=== PATIENT | female | born 1960 | race Caucasian/White ===

== ENCOUNTER → 2016-12-30 | Outpatient (CLI) | payer OTHER ==
--- NOTE | 2017-01-02 09:53 | MM ---
Reason for exam: screening (asymptomatic). History: Patient is postmenopausal. Physical Findings: A clinical breast exam by your physician is recommended on an annual basis and results should be correlated with mammographic findings. MG Screening Mammo w CAD Bilateral CC and MLO view(s) were taken. No prior studies available for comparison. The breast tissue is heterogeneously dense. This may lower the sensitivity of mammography. No significant changes when compared with prior studies. ASSESSMENT: Benign, BI-RAD 2 RECOMMENDATION: Routine screening mammogram of both breasts in 1 year.
== END | disposition home or self-care (01) ==
LOC: RADMAMWWP 13:00
PROVIDERS: ATTEND Internal Medicine
DX: Z12.31 Encounter for screening mammogram for malignant neoplasm of breast (principal)

== ENCOUNTER 2017-06-09 08:24 | Day surgery (SDC) | payer OTHER ==
[2017-06-08 09:45] VITALS: BMI 24.7
[~2017-06-09 08:24] MED LIST: LACTATED RINGERS 1,000 ML IV SCH
[2017-06-09 08:40] VITALS: RESP 16; TEMP 98
[2017-06-09] MEDS ORDERED: LIDOCAINE 1% 20 ML VIAL (10MG/ML) FOR IV START INTRADERMA ONE (08:51)
[2017-06-09 08:58] LABS: Glucose,Whole Blood 149 mg/dL (75-99)
--- NOTE | 2017-06-09 10:00 | P.PCN ---
Date of Procedure: 06/09/17 Procedure(s) Performed: BRIEF HISTORY: Patient is a 56-year-old pleasant white female scheduled for an elective colonoscopy as a part of evaluation of Hemoccult-positive stool. PROCEDURE PERFORMED: Colonoscopy with snare polypectomy. PREOPERATIVE DIAGNOSIS: Hemoccult-positive stool. IV sedation per Anesthesia. PROCEDURE: After informed consent was obtained, the patient, was brought into the endoscopy unit. IV sedation was administered by Anesthesia under continuous monitoring. Digital rectal examination was normal. Initially the Olympus CF- 160 flexible video colonoscope was then inserted in the rectum, gradually advanced into the cecum without any difficulty. Careful examination was performed as the scope was gradually being withdrawn. Ileocecal valve and the appendiceal orifice were visualized and appeared normal. Prep was excellent. Mucosa of the cecum, ascending colon, transverse colon, descending colon, sigmoid colon, and rectum appeared normal. In the proximal rectum there were 2 polyps measuring 5 mm and 1 cm in size both of which were removed by snare polypectomy. Retroflexion was performed in the rectum and no lesions were seen. The patient tolerated the procedure well. IMPRESSION: 1 cm and 5 mm proximal rectal polyp status post polypectomy Rest of the colon appeared normal RECOMMENDATIONS: Findings of this examination were discussed with the patient as well as her family. She was advised to follow with the biopsy results. If the biopsy shows a tubular adenoma she can have a repeat coloscopy in 5 years.
[2017-06-09 10:18] VITALS: BP 123/76; PULSE 82
== END 2017-06-09 10:36 | disposition home or self-care (01) ==
LOC: ORWHC2ENDO 08:24
PROVIDERS: ATTEND Internal Medicine Gastroenterology
DX: K62.1 Rectal polyp (principal); I10 Essential (primary) hypertension; F39 Unspecified mood [affective] disorder; Z88.5 Allergy status to narcotic agent; Z88.0 Allergy status to penicillin; Z79.899 Other long term (current) drug therapy; Z79.891 Long term (current) use of opiate analgesic; Z72.0 Tobacco use
CPT/HCPCS: 45385; 88305

== ENCOUNTER → 2020-06-29 | Outpatient (CLI) | payer OTHER ==
--- NOTE | 2020-06-29 23:31 | MR ---
EXAMINATION TYPE: MR lumbar spine wo/w con DATE OF EXAM: 06/29/2020 COMPARISON: 02/02/2012 HISTORY: LBP, radiates into left buttock. Hx laminectomy CONTRAST: Standard multiplanar, multisequence MRI departmental protocol utilizing 6.5 mL intravenous Gadavist g adolinium contrast. Lumbar vertebra have normal alignment. There is decreased signal in the disks at L4-5 and L5-S1. Ther e is L5-S1 disc space narrowing. There is small posterior disc bulging at L4-5 and L5-S1. There is le ft-sided L5 laminectomy defect. There is partial visualization of the sacroiliac joints which are int act. There is no lumbar paraspinal mass. There is no compression fracture. I see no bony destructive process. There is no spinal stenosis. There is minimal lateral recess stenosis due to facet arthropat hy at L4-5. The contrast images show no pathologic enhancement. There is narrowing of the L5-S1 neural foramina b ilaterally due to disc space narrowing and facet arthropathy. IMPRESSION: There is small posterior L5-S1 lumbar disc herniation without spinal stenosis. This appears increased slightly compared to old exam. No spinal stenosis. No fracture. L5-S1 neural foraminal narrowing unc hanged. Small posterior L4-5 disc bulging and herniation slightly increased compared to old exam.
== END | disposition home or self-care (01) ==
LOC: RADMRIMAIN 20:51
PROVIDERS: ATTEND Internal Medicine
DX: M48.07 Spinal stenosis, lumbosacral region (principal); M51.26 Other intervertebral disc displacement, lumbar region; M51.27 Other intervertebral disc displacement, lumbosacral region; Z98.890 Other specified postprocedural states
CPT/HCPCS: 72158; A9585

== ENCOUNTER 2022-05-20 07:43 | Day surgery (SDC) | payer OTHER ==
[~2022-05-20 07:43] MED LIST changes: +ALPRAZolam 0.25 MG TAB PO PRN; +ALPRAZolam 0.5 MG TAB PO PRN; +ASPIRIN 325 MG TAB PO PRN; +HEPARIN SODIUM,PORCINE 10,000 UNIT in SODIUM CHLORIDE 0.9% 1,000 ML IRRIGATION PRN; +HEPARIN SODIUM,PORCINE 2,500 UNIT in SODIUM CHLORIDE 0.9% 250 ML IRRIGATION PRN; -LACTATED RINGERS 1,000 ML IV SCH; +SODIUM CHLORIDE 0.9% 1,000 ML in EMPTY BAG 1 BAG IV ONE; +ZOLPIDEM 5 MG TAB PO PRN
[2022-05-20] MEDS ORDERED: SODIUM CHLORIDE 0.9% 1,000 ML IV ONE (07:50)
[2022-05-20 08:11] VITALS: RESP 18; TEMP 97.9
[2022-05-20 08:20] LABS: Basophils % (A) 0 %; Eosinophils # (A) 0.2 k/uL (0-0.7); Eosinophils % (A) 2 %; HCT 38.4 % (34.0-46.0); HGB 13.8 gm/dL (11.4-16.0); Lymphocytes % (A) 13 %; MCH 33.4 pg (25.0-35.0); MCHC 36.1 g/dL (31.0-37.0); MCV 92.7 fL (80.0-100.0); Mean Platelet Volume 9.2; Monocytes # (A) 0.3 k/uL (0-1.0); Monocytes % (A) 3 %; Neutrophils # (A) 6.3 k/uL (1.3-7.7); Neutrophils % (A) 80 %; Platelet Count 206 k/uL (150-450); RBC 4.14 m/uL (3.80-5.40); RDW 13.3 % (11.5-15.5); WBC 7.9 k/uL (3.8-10.6)
[2022-05-20 08:44] LABS: African American GFR (CKD) >90 (>60 ml/min/1.73 sqM); Anion Gap 11 mmol/L; Blood Urea Nitrogen 18 mg/dL (7-17); Calcium 9.1 mg/dL (8.4-10.2); Carbon Dioxide 24 mmol/L (22-30); Chloride 102 mmol/L (98-107); Glucose 193 mg/dL (74-99); Non-African American GFR(CKD) >90 (>60 ml/min/1.73 sqM); Sodium 137 mmol/L (137-145)
[2022-05-20] MEDS ORDERED: MIDAZOLAM 2 MG/2 ML VIAL IV ONE (10:03)
[2022-05-20] MEDS ORDERED: fentaNYL (PF) 50 MCG/ML 2 ML AMP IV ONE (10:03)
[2022-05-20] MEDS ORDERED: LIDOCAINE 1% INJ 10MG/ML (30 ML VIAL-PF) SQ ONE (10:05)
[2022-05-20] MEDS ORDERED: VERAPAMIL SYRINGE (5 MG/10 ML) INTRAARTER ONE (10:06)
[2022-05-20] MEDS ORDERED: HEPARIN SODIUM 1,000 UN/ML (10ML VL) IV ONE (10:10)
[2022-05-20] MEDS ORDERED: IOPAMIDOL-250 100ML BTL INTRAARTER ONE (10:19)
--- NOTE | 2022-05-20 10:58 | IR ---
EXAMINATION TYPE: IR angio abdominal w runoff DATE OF EXAM: 05/20/2022 COMPARISON: NONE HISTORY: Fluoroscopy time. Fluoroscopy was provided to the referring clinician.
--- NOTE | 2022-05-20 12:04 | P.PCN ---
Description of Procedure: PROCEDURES PERFORMED: Abdominal angiography with bilateral runoff INDICATION: Abnormal ultrasound, buttocks claudication CONSENT:I have discussed the risks, benefits and alternative therapies for the above-mentioned procedure and for both sedation/analgesia as well as necessary blood product administration, if indicated, as they pertain to this patient. The patient has indicated understanding and acceptance of the risks and procedures discussed. PROCEDURE: After the risks, benefits and alternatives of the above mentioned procedure explained in detail with the patient, informed consent was obtained. Patient was taken to the catheterization lab and prepped and draped in usual fashion. 1% lidocaine was used to anesthetize the right radial area. A 6- Tunisian sheath was placed in the right radial artery using modified Seldinger technique. A 5-Tunisian pigtail catheter was inserted to the abdominal aorta and DSA imaging was obtained. A TR band was placed and hemostasis achieved. The patient tolerated the procedure well. Patient was transported back to the post catheterization holding area in stable condition. Conscious Sedation: Patient was monitored under the direct supervision of vision of myself for conscious sedation using Versed and fentanyl for a total duration of 26 minutes Abdominal aorta: The abdominal aorta has mild calcifcation. Renal arteries are patent. There is mild to moderate ectasia of the infrarenal aorta concerning for aneurysm, recommend dedicated CT or ultrasound for further management. There is mild distal aorta 40% stenosis. Right lower extremity: Right common iliac artery: There is no significant stenosis. Right external iliac artery: There is no significant stenosis. Right internal iliac artery: There is no significant stenosis. Right common femoral artery: There is no significant stenosis. Right profunda: There is no significant stenosis. Right SFA: There is no significant stenosis. Right popliteal artery: There is no significant stenosis. Right tibioperoneal trunk: There is no significant stenosis. Right anterior tibial artery: There is no significant stenosis. Right porterior tibial artery: There is no significant stenosis. Right peroneal artery: There is no significant stenosis. Left lower extremity: Left common iliac artery: There is a 100% proximal left common iliac stenosis which is heavily calcified. Left external iliac artery: There is no significant stenosis. Left internal iliac artery: There is no significant stenosis. Left common femoral artery: There is no significant stenosis. Left profunda: There is no significant stenosis. Left SFA: There is no significant stenosis. Left popliteal artery: There is no significant stenosis. Left tibioperoneal trunk: There is no significant stenosis. Left anterior tibial artery: There is no significant stenosis. Left porterior tibial artery: There is no significant stenosis. Left peroneal artery: There is no significant stenosis. FINAL IMPRESSION: 1. Peripheral arterial disease as described above including distal aorta 40% stenosis and 100% proximal left common iliac stenosis. 2. Infrarenal ectasia, rule out aneurysm PLAN: 1. Aggressive risk factor modification per most recent ACC/AHA guidelines. 2. Recommend abdominal ultrasound or CTA to further evaluate for any infrarenal aneurysm. Consider percutaneous endovascular revascularization of left common iliac artery.
[2022-05-20 14:31] VITALS: BP 126/73; PULSE 74
== END 2022-05-20 15:30 | disposition home or self-care (01) ==
LOC: CATHCVL 07:43
PROVIDERS: ATTEND Internal Medicine
DX: I70.212 Atherosclerosis of native arteries of extremities with intermittent claudication, left leg (principal); I70.0 Atherosclerosis of aorta
CPT/HCPCS: 36200; 75625; 75716; 80048; 85025; C1769; C1894; J2250; J2001; J3010; J1644; Q9966

== ENCOUNTER 2022-08-12 07:41 | Day surgery (SDC) | payer OTHER ==
[2022-08-10 09:04] VITALS: BMI 21.1
[~2022-08-12 07:41] MED LIST changes: +CLINDAMYCIN 900 MG in DEXTROSE 5% IN WATER 50 ML IVPB ONE; -HEPARIN SODIUM,PORCINE 10,000 UNIT in SODIUM CHLORIDE 0.9% 1,000 ML IRRIGATION PRN; -HEPARIN SODIUM,PORCINE 2,500 UNIT in SODIUM CHLORIDE 0.9% 250 ML IRRIGATION PRN; -ZOLPIDEM 5 MG TAB PO PRN
[2022-08-12 08:10] LABS: Glucose,Whole Blood 168 mg/dL (70-110)
[2022-08-12 08:16] LABS: Basophils % (A) 0 %; Eosinophils # (A) 0.2 k/uL (0-0.7); Eosinophils % (A) 3 %; HCT 41.5 % (34.0-46.0); HGB 14.2 gm/dL (11.4-16.0); Lymphocytes # (A) 1.1 k/uL (1.0-4.8); Lymphocytes % (A) 22 %; MCH 32.1 pg (25.0-35.0); MCHC 34.3 g/dL (31.0-37.0); MCV 93.7 fL (80.0-100.0); Mean Platelet Volume 7.7; Monocytes # (A) 0.3 k/uL (0-1.0); Monocytes % (A) 6 %; Neutrophils # (A) 3.3 k/uL (1.3-7.7); Neutrophils % (A) 67 %; Platelet Count 215 k/uL (150-450); RBC 4.43 m/uL (3.80-5.40); RDW 12.8 % (11.5-15.5); WBC 4.9 k/uL (3.8-10.6)
[2022-08-12 08:28] LABS: African American GFR (CKD) >90 (>60 ml/min/1.73 sqM); Anion Gap 8 mmol/L; Blood Urea Nitrogen 15 mg/dL (7-17); Calcium 9.2 mg/dL (8.4-10.2); Carbon Dioxide 27 mmol/L (22-30); Chloride 102 mmol/L (98-107); Glucose 166 mg/dL (74-99); Non-African American GFR(CKD) >90 (>60 ml/min/1.73 sqM); Potassium 4.2 mmol/L (3.5-5.1); Sodium 137 mmol/L (137-145)
[2022-08-12] MEDS ORDERED: LIDOCAINE 1% INJ 10MG/ML (20 ML MDV) ONE (09:17)
[2022-08-12] MEDS ORDERED: HEPARIN SODIUM 1,000 UN/ML (10ML VL) ONE (09:35)
[2022-08-12] MEDS ORDERED: fentaNYL (PF) 50 MCG/ML 2 ML AMP ONE (09:35)
[2022-08-12] MEDS: MIDAZOLAM 2 MG/2 ML VIAL IV ONE ×2 (09:38→09:43)
[2022-08-12] MEDS: fentaNYL (PF) 50 MCG/ML 2 ML AMP IV ONE ×2 (09:38→09:55)
[2022-08-12] MEDS: LIDOCAINE 1% INJ 10MG/ML (30 ML VIAL-PF) SQ ONE ×2 (09:41→09:57)
[2022-08-12] MEDS ORDERED: VERAPAMIL 2.5 MG/ML 2 ML AMP ONE (09:54)
[2022-08-12] MEDS ORDERED: MIDAZOLAM 2 MG/2 ML VIAL IV ONE (09:55)
[2022-08-12] MEDS ORDERED: VERAPAMIL SYRINGE (5 MG/10 ML) INTRAARTER ONE (09:57)
[2022-08-12] MEDS: HEPARIN SODIUM 1,000 UN/ML (10ML VL) IV ONE ×2 (10:01→11:00)
[2022-08-12] MEDS ORDERED: CLOPIDOGREL 75 MG TAB ONE (10:51)
[2022-08-12] MEDS ORDERED: CLOPIDOGREL 75 MG TAB PO ONE (10:58)
[2022-08-12] MEDS ORDERED: IOPAMIDOL-250 100ML BTL INTRAARTER ONE (11:17)
--- NOTE | 2022-08-12 11:34 | IR ---
EXAMINATION TYPE: IR stent intravas non coronary DATE OF EXAM: 08/12/2022 COMPARISON: NONE HISTORY: Fluoroscopy time. Fluoroscopy was provided to the referring clinician.
[2022-08-12] MEDS ORDERED: INSULIN ASPART (NovoLOG) 100 UNIT/ML VIAL SQ PRN (11:50)
[2022-08-12] MEDS ORDERED: NALOXONE 0.4 MG/ML 1 ML VIAL IVP PRN (11:52)
[2022-08-12] MEDS: HYDROcodone/APAP 7.5-325MG 1 EACH TAB PO PRN ×2 (12:52→16:38)
[2022-08-12] MEDS ORDERED: hydrALAZINE HCL 20 MG/ML 1 ML VIAL IVP STA (13:09)
[2022-08-12] MEDS ORDERED: MORPHINE SULFATE 2 MG/ML SYRINGE IVP STA (13:09)
[2022-08-12] MEDS ORDERED: MORPHINE SULFATE 4 MG/ML SYRINGE ONE (13:10)
--- NOTE | 2022-08-12 18:11 | P.PCN ---
Description of Procedure: PROCEDURES PERFORMED: Selective left iliac angiography, left common iliac stent with 7.0 x 39mm Omnilink INDICATION: PAD CONSENT:I have discussed the risks, benefits and alternative therapies for the above-mentioned procedure and for both sedation/analgesia as well as necessary blood product administration, if indicated, as they pertain to this patient. The patient has indicated understanding and acceptance of the risks and procedures discussed. PROCEDURE: After the risks, benefits and alternatives of the above mentioned procedure explained in detail with the patient, informed consent was obtained. Patient was taken to the catheterization lab and prepped and draped in usual fashion. 1% lidocaine was used to anesthetize the left femoral area. A 6- Frisian sheath was placed in the left femoral artery using modified Seldinger technique. Brief attempts were made to come from her femoral approach with a angled glide catheter and a 0.035 Glidewire. To avoid any dissection into the aorta decision was made to perform entry from antegrade approach. Therefore a 6-Frisian sheath was placed in the right radial artery using modified Seldinger technique. Next using a glide catheter and a 0.035 stiff Glidewire, the proximal portion of the lesion was engaged and the PAPER DELIVERER was able to be wired, likely some degree of subintimal path with a reentry of the distal left common iliac artery. The wire was snared from a femoral approach and externalized through the femoral sheath. Next from the femoral approach balloon angioplasty was performed with a 4.0 balloon and then a 7.0 balloon. Next a 7.0 x 39 mm Omnilink stent was placed with approximately 2mm extending into the aorta. There was a distal aorta ectasia which per CT did not meet criteria for aneurysm and given no significant involvment of the right common iliac artery, only left iliac stenting was performed. Preintervention there was 100% left common iliac stenosis with no antegrade flow and postintervention there was less than 10% stenosis with uninhibited antegrade flow. A left femoral angiogram was performed which showed diffuse disease and felt b est treated with manual pull and sheath was left in place for manual pull. The right radial sheath was pulled with TR band placed and hemostasis achieved. The patient tolerated the procedure well. Patient was transported back to the post catheterization holding area in stable condition. Conscious Sedation: Patient was monitored under the direct supervision of vision of myself for conscious sedation using Versed and fentanyl for a total duration of 85 minutes HEMODYNAMICS: Ao: 144/76 Abdominal aorta: The abdominal aorta has diffuse calcifcation. Renal arteries not imaged. There is ectasia of the distal aorta. There is no significant stenosis. Left lower extremity: Left common iliac artery: There is 100% stenosis. Left external iliac artery: There is diffuse 20-30% stenosis. Left internal iliac artery: There is 30% proximal stenosis. Left common femoral artery: There is no significant stenosis. FINAL IMPRESSION: 1. Peripheral arterial disease as described above including 100% proximal left common iliac stenosis 2. S/p left common iliac stent with 7.0 x 39mm Omnilink PLAN: 1. Aggressive risk factor modification per most recent ACC/AHA guidelines. 2. Continue aspirin and Plavix for minimum of 3 months.
[2022-08-12] MEDS ORDERED: lisinopriL 20 MG TAB PO SCH (21:00)
[2022-08-12] MEDS ORDERED: DOXEPIN 25 MG CAP PO SCH (21:00)
[2022-08-12] MEDS ORDERED: amLODIPine 5 MG TAB PO SCH (21:00)
[2022-08-12] MEDS ORDERED: EZETIMIBE 10 MG TAB PO SCH (21:00)
[2022-08-12] MEDS ORDERED: ATORVASTATIN 40 MG TAB PO SCH (21:00)
[2022-08-12] MEDS ORDERED: DAPAGLIFLOZIN PROPANEDIOL 10 MG TABLET PO SCH (21:00)
[2022-08-13] MEDS: HYDROcodone/APAP 7.5-325MG 1 EACH TAB PO PRN (03:17)
[2022-08-13 06:21] LABS: Glucose,Whole Blood 164 mg/dL (70-110)
[2022-08-13 07:08] LABS: Basophils % (A) 0 %; Eosinophils # (A) 0.1 k/uL (0-0.7); Eosinophils % (A) 3 %; HCT 36.8 % (34.0-46.0); HGB 12.7 gm/dL (11.4-16.0); Lymphocytes # (A) 0.8 k/uL (1.0-4.8); Lymphocytes % (A) 22 %; MCH 32.8 pg (25.0-35.0); MCHC 34.5 g/dL (31.0-37.0); Mean Platelet Volume 8.2; Monocytes # (A) 0.2 k/uL (0-1.0); Monocytes % (A) 6 %; Neutrophils # (A) 2.5 k/uL (1.3-7.7); Neutrophils % (A) 67 %; Platelet Count 165 k/uL (150-450); RBC 3.88 m/uL (3.80-5.40); RDW 12.8 % (11.5-15.5); WBC 3.6 k/uL (3.8-10.6)
[2022-08-13 07:23] LABS: African American GFR (CKD) >90 (>60 ml/min/1.73 sqM); Anion Gap 6 mmol/L; Blood Urea Nitrogen 13 mg/dL (7-17); Calcium 8.8 mg/dL (8.4-10.2); Carbon Dioxide 25 mmol/L (22-30); Chloride 105 mmol/L (98-107); Glucose 160 mg/dL (74-99); Non-African American GFR(CKD) >90 (>60 ml/min/1.73 sqM); Potassium 4.2 mmol/L (3.5-5.1); Sodium 136 mmol/L (137-145)
[2022-08-13 08:06] VITALS: BP 153/73; PULSE 78; RESP 16; TEMP 97.5
[2022-08-13] MEDS ORDERED: CLOPIDOGREL 75 MG TAB PO SCH (09:00)
[2022-08-13] MEDS ORDERED: ASPIRIN 81 MG PO SCH ×2 (11:15)
--- NOTE | 2022-08-13 11:29 | P.DS ---
Providers Date of admission: 08/12/22 Attending physician: Lincoln Delarosa DO Primary care physician: Felipe Galvan Assessment: The patient is a 62-year-old female who is currently in observation after undergoing left common iliac stenting with Dr. Delarosa. She tolerated the procedure well and had no complaints overnight. She states she can feel her left lower extremity and it is no longer numb. She states she is able to have full range of motion of her left lower extremity as well. No discomfort in her groins when ambulating around the room. She states she does have some mild discomfort in her right wrist. Recommend ice pack if needed. GENERAL: Well-appearing, well-nourished and in no acute distress. NECK: Supple without JVD or thyromegaly. LUNGS: Breath sounds clear to auscultation bilaterally. Respiration equal and unlabored. No wheezes, rales or rhonchi. HEART: Regular rate and rhythm without murmurs, rubs or gallops. S1 and S2 heard. EXTREMITIES: Normal range of motion, no edema. No clubbing or cyanosis. Peripheral pulses intact and strong. Left groin site healed. No hematoma or bruit. Right radial site has mild bruising. No bruit. TELEMETRY: Sinus rhythm overnight LABS: CBC 3.6, hemoglobin 12 and hematocrit 36.8, platelet 165, sodium 136, potassium 4.2, BUN 13, creatinine 0.51 IMPRESSION: Peripheral vascular disease Status post arthrectomy and stenting stenting of the left common iliac PLAN: Continue dual antiplatelet therapy Patient may be discharged Outpatient follow-up with Dr. Delarosa I am dictating on behalf of Dr Efe Roy's history/physical and assessment/plan. Plan - Discharge Summary Discharge Rx Participant: No New Discharge Prescriptions: No Action lisinopriL [Zestril] 20 mg PO HS HYDROcodone/APAP 7.5-325MG [Colton 7.5-325] 1 tab PO BID PRN PRN Reason: Pain Dapagliflozin Propanediol [Farxiga] 10 mg PO HS amLODIPine [Norvasc] 5 mg PO HS Sertraline [Zoloft] 100 mg PO HS Doxepin [SINEquan] 25 mg PO HS Atorvastatin [Lipitor] 40 mg PO HS Ezetimibe [Zetia] 10 mg PO HS INSULIN ASPART (NovoLOG) [NovoLOG (formulary)] 8 unit SQ AC-TID PRN PRN Reason: hyperglycemia Aspirin 81 mg PO DAILY ALPRAZolam [Xanax] 1 mg PO TID PRN PRN Reason: Anxiety Discharge Medication List lisinopriL [Zestril] 20 mg PO HS 06/08/17 [History] Atorvastatin [Lipitor] 40 mg PO HS 05/18/22 [History] Dapagliflozin Propanediol [Farxiga] 10 mg PO HS 05/18/22 [History] Doxepin [SINEquan] 25 mg PO HS 05/18/22 [History] Ezetimibe [Zetia] 10 mg PO HS 05/18/22 [History] HYDROcodone/APAP 7.5-325MG [Colton 7.5-325] 1 tab PO BID PRN 05/18/22 [History] INSULIN ASPART (NovoLOG) [NovoLOG (formulary)] 8 unit SQ AC-TID PRN 05/18/22 [History] Sertraline [Zoloft] 100 mg PO HS 05/18/22 [History] amLODIPine [Norvasc] 5 mg PO HS 05/18/22 [History] ALPRAZolam [Xanax] 1 mg PO TID PRN 05/20/22 [History] Aspirin 81 mg PO DAILY 05/20/22 [History] Follow up Appointment(s)/Referral(s): Lincoln Delarosa DO [STAFF PHYSICIAN] - 08/19/22 10:00 am (Monday)
== END 2022-08-13 13:11 | disposition home or self-care (01) ==
LOC: CATHCVL 07:41 → 4SSUR 13:40 → 3SCARD 13:42 → CATHCVL 08-13 13:11
PROVIDERS: ATTEND Internal Medicine
DX: I70.212 Atherosclerosis of native arteries of extremities with intermittent claudication, left leg (principal); Z79.02 Long term (current) use of antithrombotics/antiplatelets; Z79.82 Long term (current) use of aspirin
CPT/HCPCS: 37221; 80048 ×2; 85025 ×2; J2250; J0360; J2001; J3010; J2270; J1644; Q9966

== ENCOUNTER → 2023-03-15 | Outpatient (CLI) | payer OTHER ==
--- NOTE | 2023-03-16 09:08 | CT ---
EXAMINATION TYPE: CT pelvis wo con DATE OF EXAM: 03/15/2023 COMPARISON: 06/24/2019. HISTORY: SI joint pain. hx of SI screw. CT DLP: 330.90 mGycm Automated exposure control for dose reduction was used. FINDINGS: There is postsurgical changes extending across the left SI joint with 2 surgical screws. The more pos terior screw extends slightly into the left sacral foramina with no definite nerve root contact. Ther e is no evidence of lucency surrounding the surgical screws. Distance from the cortex relative to the proximal screw is stable relative to prior exam. There is bilateral hip arthropathy with vacuum disc L5-S1 severe degenerative disc disease with facet arthropathy and bilateral foraminal encroachment. Diverticulosis of the colon. There is extensive atherosclerotic change of aorta and proximal iliac va sculature. There appears to be a left-sided iliac stent. There is no contrasted menstruation. Vacuum changes are seen within bilateral SI joints with mild hypertrophic arthropathy. Stable scleros is involving the posterior margin of the sacrum most likely on the basis of bone graft material which is incompletely consolidated. Ectasia of the distal aorta maximal dimension of 2.8 cm with atheroscl erotic changes. [place] involving the left femoral head. IMPRESSION: 1. Postsurgical changes involving the left SI joint are stable from the CT scan of 06/24/2022. 2. Bilateral hip arthropathy correlate for femoral acetabular impingement. 3. Severe degenerative disc disease L5-S1. Extensive atherosclerotic change of the distal aorta, iliac vasculature with a left-sided iliac stent .
== END | disposition home or self-care (01) ==
LOC: RADCTMAIN 16:58
PROVIDERS: ATTEND Neurological Surgery
DX: M51.37 Other intervertebral disc degeneration, lumbosacral region (principal); M46.1 Sacroiliitis, not elsewhere classified; M16.0 Bilateral primary osteoarthritis of hip; G89.4 Chronic pain syndrome; R10.2 Pelvic and perineal pain; I70.0 Atherosclerosis of aorta; Z95.828 Presence of other vascular implants and grafts; Z98.890 Other specified postprocedural states; Z78.0 Asymptomatic menopausal state
CPT/HCPCS: 72192

== ENCOUNTER → 2023-08-09 | Outpatient (CLI) | payer OTHER ==
--- NOTE | 2023-08-11 14:16 | MR ---
EXAMINATION TYPE: MR lumbar spine wo con DATE OF EXAM: 08/09/2023 3:45 PM CLINICAL INDICATION:Female, 63 years old with history of M48.07 SPINAL STENOSIS LUMBOSACRAL REGION; P HH, Low back pain that radiates into right buttocks, spinal stenosis of lumbosacral region, history o f surgery COMPARISON: None TECHNIQUE: Multi planar, multi sequence imaging was performed utilizing: T1-weighted, T2-weighted, a nd turbo inversion recovery imaging of the lumbar spine. IV Contrast: (None if empty) FINDINGS: Alignment: The lumbar vertebral bodies have preserved heights and alignment. Cord: The conus medullaris and the distal spinal cord appear unremarkable with regards to their signa l intensity and morphology. Bones/Discs: Mild degeneration changes throughout the spine with osteophyte formation and facet joint arthropathy. Intervertebral disc signal is maintained. T12-L1: No evidence of significant spinal canal stenosis or neural foraminal stenosis. L1-L2: No evidence of significant spinal canal stenosis or neural foraminal stenosis. L2-L3: No evidence of significant spinal canal stenosis or neural foraminal stenosis. L3-L4: No evidence of significant spinal canal stenosis or neural foraminal stenosis. L4-L5: Disc bulge with posterior annular fissure and facet joint arthropathy result in mild to modera te spinal canal and moderate to severe bilateral neural foraminal stenosis. L5-S1: Disc bulge and facet joint arthropathy result in mild spinal canal and severe bilateral neural foraminal stenosis, right greater than left. No significant spinal canal or neural foraminal stenosis in the remainder of the visualized levels. Other findings: None. IMPRESSION: 1. No definitive evidence of disc herniation or significant spinal canal stenosis. 2. Mild/moderate disc degeneration with associated osteoarthritic changes with neural foraminal sten osis worse at L4-L5 with moderate to severe bilateral and L5-S1 with severe bilateral stenosis.
== END | disposition home or self-care (01) ==
LOC: RADMRIMAIN 14:43
PROVIDERS: ATTEND Neurological Surgery
DX: M51.36 Other intervertebral disc degeneration, lumbar region (principal); M99.73 Connective tissue and disc stenosis of intervertebral foramina of lumbar region
CPT/HCPCS: 72148

== ENCOUNTER → 2023-10-18 | Outpatient (CLI) | payer OTHER ==
--- NOTE | 2023-10-18 16:13 | XR ---
EXAMINATION TYPE: XR Hip Bilateral and AP pelvis DATE OF EXAM: 10/18/2023 2:36 PM CLINICAL INDICATION:Female, 63 years old with history of G894 CHRONIC PAIN SYNDROME M25.551 PAIN IN R IGHT H; [facility] COMPARISON: None. TECHNIQUE: XR Hip Bilateral and AP pelvis; hip was examined in the frontal and lateral projections an d a AP pelvis. FINDINGS: No evidence for acute process, joint dislocation or significant soft tissue swelling. Osteo phyte formation of the superior acetabulum of the hip. There is mild joint space narrowing. Sacroiliac joint screws appear intact. IMPRESSION: 1. No evidence for acute process. 2. Mild hip osteoarthrosis.
== END | disposition home or self-care (01) ==
LOC: RADXRMAIN 14:20
PROVIDERS: ATTEND Neurological Surgery
DX: M16.0 Bilateral primary osteoarthritis of hip (principal); G89.4 Chronic pain syndrome
CPT/HCPCS: 73521

== ENCOUNTER → 2023-12-20 | Outpatient (CLI) | payer OTHER ==
--- NOTE | 2024-01-23 21:39 | XR ---
Patricia Ambrosio : 1960 EXAMINATION TYPE: XR ribs RT w pa chest xray, 5 views DATE OF EXAM: 12/22/2023 COMPARISON: None available during downtime HISTORY: 63-year-old female pain after fall downstairs one week ago FINDINGS: ACDF hardware. Heart normal size. Aorta and pulmonary vasculature within normal limits. No consolidat ion, pneumothorax, or pleural effusion. There is a nondisplaced fracture of the right posterolateral eighth rib noted. No displaced rib fract ures seen. IMPRESSION: Nondisplaced fracture right posterolateral eighth rib. No acute cardiopulmonary process.
== END | disposition home or self-care (01) ==
LOC: RADXRMAIN 17:14
PROVIDERS: ATTEND Family Medicine
DX: S22.31XA Fracture of one rib, right side, initial encounter for closed fracture (principal); R07.81 Pleurodynia

== ENCOUNTER → 2024-01-31 | Outpatient (CLI) | payer OTHER ==
[2024-01-31 15:49] LABS: Appearance,Urine Cloudy (Clear); Bilirubin,Urine Negative (Negative); Blood,Urine Negative (Negative); Color,Urine Yellow; Glucose,Urine (UA) Trace (Negative); Ketones,Urine Negative (Negative); Leukocyte Esterase,Urine Negative (Negative); Mucus,Urine Occasional /hpf; Nitrite,Urine Negative (Negative); PH, Urine 5.5 (5.0-8.0); Protein,Urine Trace (Negative); RBC,Urine 4 /hpf (0-5); Specific Gravity,Urine 1.023 (1.001-1.035); Squamous Epithelial Cell,Urine 1 /hpf (0-4); WBC,Urine 3 /hpf (0-5)
--- NOTE | 2024-01-31 16:18 | XR ---
EXAMINATION TYPE: XR chest 2V DATE OF EXAM: 01/31/2024 3:15 PM CLINICAL INDICATION: Female, 63 years old with history of Z01.818 Z01.811 CH R 2V; [facility] COMPARISON: Chest radiographs from 12/20/2023 TECHNIQUE: XR chest 2V Frontal view of the chest. FINDINGS: Lungs/Pleura: There is no evidence of pleural effusion, focal consolidation, or pneumothorax. Pulmonary vascularity: Unremarkable. Heart/mediastinum: Cardiomediastinal silhouette is unremarkable. Musculoskeletal: No acute osseous pathology. Other findings: None IMPRESSION: No acute cardiopulmonary disease/process. [facility], , 01/31/2024 4:16 PM
[2024-01-31 18:21] LABS: HCT 44.5 % (37.2-46.3); HGB 15.5 g/dL (12.0-15.0); MCH 32.5 pg (27.0-32.0); MCHC 34.8 g/dL (32.0-37.0); MCV 93.3 FL (80.0-97.0); NRBC Per 100 WBC 0 X 10*3/uL (0.00-0.01); Platelet Count 306 X 10*3/uL (140-440); RBC 4.77 X 10*6/uL (4.10-5.20); RDW 12.4 % (11.5-14.5); WBC 6.96 X 10*3/uL (4.50-10.00)
[2024-01-31 18:34] LABS: Blood Urea Nitrogen 15.2 mg/dL (9.0-27.0); Calcium 10.5 mg/dL (8.7-10.3); Chloride 95 mmol/L (96-109); Glucose 251 mg/dL (70-110); Potassium 4.3 mmol/L (3.5-5.5); Sodium 136 mmol/L (135-145)
== END | disposition home or self-care (01) ==
LOC: LABWHC1 14:05
PROVIDERS: ATTEND Neurological Surgery
DX: Z01.811 Encounter for preprocedural respiratory examination (principal); R05.9 Cough, unspecified; I49.8 Other specified cardiac arrhythmias; D64.9 Anemia, unspecified; R73.09 Other abnormal glucose
CPT/HCPCS: 36415; 71046; 80048; 81001; 83036; 85027

== ENCOUNTER → 2024-03-27 | Outpatient (CLI) | payer OTHER ==
--- NOTE | 2024-03-27 16:30 | XR ---
EXAMINATION TYPE: XR pelvis AP view DATE OF EXAM: 03/27/2024 4:17 PM COMPARISON: Previous hip radiograph study dated 10/18/2043. CLINICAL INDICATION: Female, 63 years old with history of INTRACTABLE LOW BACK PAIN M5459 SACROILITIS M46.1; [facility] TECHNIQUE: XR pelvis AP view, examined in a single projection. FINDINGS: No acute fracture or aggressive osseous lesion. Left sacroiliac joint fusion with 2 cannula sharlene screws visualized traversing the sacroiliac joint. Single cannulated screw traversing the right S I joint. Mild sclerotic changes along the iliac margin of the bilateral sacroiliac joints. IMPRESSION: 1. No acute osseous abnormality. 2. Nonspecific relatively symmetric sclerotic changes along the iliac margin of the bilateral SI herbert nts which could reflect sacroiliitis [facility], , 03/27/2024 4:27 PM
== END | disposition home or self-care (01) ==
LOC: RADXRMAIN 16:02
PROVIDERS: ATTEND Neurological Surgery
DX: M46.1 Sacroiliitis, not elsewhere classified (principal)
CPT/HCPCS: 72170

== ENCOUNTER → 2024-08-09 | Outpatient (CLI) | payer OTHER ==
--- NOTE | 2024-08-09 17:32 | CTL ---
EXAMINATION TYPE: CT Low Dose Lung DATE OF EXAM: 08/09/2024 4:55 PM COMPARISON: None. 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 TECHNIQUE: Multiple axial non-contrast scans were obtained from approximately the lung apices through the upper abdomen. Coronal and sagittal reformatted images were obtained. Low dose technique was uti lized. MIP were created on a separate workstation and submitted for review. CT DLP: 75.3 mGycm, Automated exposure control for dose reduction was used. CT Contrast: Contrast used: None Oral contrast used: None FINDINGS: Lack of intravenous contrast and low dose technique limits the evaluation of the vascular and soft ti ssue structures. LUNGS: No evidence of pulmonary fibrosis. No evidence of focal consolidation, pneumothorax or pleural effusion. Centrilobular emphysema changes. Nodules: RUL: None. RML: None. RLL: None. [place]: None. LLL: None. AIRWAY: Patent and unremarkable. HEART: Size within normal limits. Moderate coronary artery calcifications present. MEDIASTINUM: No gross evidence of adenopathy. VASCULATURE: No aortic aneurysm. MUSCULOSKELETAL: Moderate disc degeneration changes are present throughout the thoracolumbar spine. SOFT TISSUES/LYMPH NODES: Unremarkable. LOWER NECK: No significant findings. UPPER ABDOMEN: No significant findings. IMPRESSION: 1. No clinically significant pulmonary nodules. 2. Mild emphysema. CT LUNG RAD AND CT CHEST RECOMMENDATION: Lung-Rad 2 Benign Appearance or Behavior: Continue annual sc reening with LDCT in 12 months. S Modifier (other clinically significant findings): None Recommend smoking cessation (if current smoker), or continuation of smoking cessation (if prior smoke r). Annual screening for lung cancer with low-dose computed tomography is recommended in adults ages 55 to 77 years who have a 30 pack-year smoking history and currently smoke or have quit within the pa st 15 years. Screening should be discontinued once a person has not smoked for 15 years or develops a health problem that substantially limits life expectancy or the ability or willingness to have curat jenna lung surgery. Lung rads 2021 [email or web address] [email or web address], , 08/09/2024 5:29 PM
== END | disposition home or self-care (01) ==
LOC: RADCTMAIN 16:09
PROVIDERS: ATTEND Family Medicine
DX: Z12.2 Encounter for screening for malignant neoplasm of respiratory organs (principal); F17.210 Nicotine dependence, cigarettes, uncomplicated; J43.2 Centrilobular emphysema
CPT/HCPCS: 71271